=== PATIENT | female | born 1985 | race Caucasian/White ===

== ENCOUNTER → 2017-10-17 | Outpatient (CLI) | payer OTHER | END | disposition home or self-care (01) | LOC: NST 15:28 | DX: Z34.92 Encounter for supervision of normal pregnancy, unspecified, second trimester (principal) ==

== ENCOUNTER 2017-11-11 11:27 | Outpatient (CLI) | payer OTHER | END 2017-11-11 12:12 | disposition home or self-care (01) | LOC: NST 11:27 | DX: Z34.83 Encounter for supervision of other normal pregnancy, third trimester (principal) ==

== ENCOUNTER 2017-12-03 16:30 | Inpatient (IN) | payer OTHER ==
[~2017-12-03] VITALS: Ht 165.1 cm; Wt 92.5 kg
[2018-01-07] MEDS ORDERED: PRENATAL 19 TA1 EAC1 PO (08:25)
[2018-01-07] MEDS ORDERED: SYNTHROID75 MCG PO (08:25)
[2018-01-07] MEDS ORDERED: ZYRTEC10 M3 PO (08:26)
[2018-01-07] MEDS ORDERED: FOLIC ACID0.4 MG PO (08:27)
== END 2018-01-09 17:29 | DRG 775 ==
LOC: OB/GYN 01-05 16:23 → LDR 01-07 06:41 → SURG-SUITE 01-07 18:26
PROC: 10E0XZZ Delivery of Products of Conception, External Approach (ICD-10-PCS; principal; 2018-01-07)
PROC: 0KQM0ZZ Repair Perineum Muscle, Open Approach (ICD-10-PCS; 2018-01-07)
PROC: 0W8NXZZ Division of Female Perineum, External Approach (ICD-10-PCS; 2018-01-07)
PROC: 3E033VJ Introduction of Other Hormone into Peripheral Vein, Percutaneous Approach (ICD-10-PCS; 2018-01-07)
PROC: 4A033R1 Measurement of Arterial Saturation, Peripheral, Percutaneous Approach (ICD-10-PCS; 2018-01-07)
PROC: 4A1HXCZ Monitoring of Products of Conception, Cardiac Rate, External Approach (ICD-10-PCS; 2018-01-07)
DX: O48.0 Post-term pregnancy (principal); O70.0 First degree perineal laceration during delivery; Z3A.40 40 weeks gestation of pregnancy; Z37.0 Single live birth

== ENCOUNTER 2017-12-31 14:12 | Outpatient (CLI) | payer OTHER | END 2017-12-31 14:35 | disposition home or self-care (01) | LOC: NST 14:12 | DX: Z34.83 Encounter for supervision of other normal pregnancy, third trimester (principal) ==

== ENCOUNTER → 2022-01-09 | Outpatient (CLI) | payer OTHER ==
[~2022-01-09] MED LIST: FOLIC ACID0.4 MG PO; PRENATAL 19 TA1 EAC1 PO; SYNTHROID75 MCG PO; ZYRTEC10 M3 PO
== END | disposition home or self-care (01) ==
LOC: NST 11:46
PROVIDERS: ATTEND Obstetrics & Gynecology Maternal & Fetal Medicine
DX: Z34.83 Encounter for supervision of other normal pregnancy, third trimester (principal)

== ENCOUNTER 2022-01-16 09:18 | Outpatient (CLI) | payer OTHER | END 2022-01-16 09:37 | disposition home or self-care (01) | LOC: NST 09:18 | PROVIDERS: ATTEND Obstetrics & Gynecology Maternal & Fetal Medicine | DX: Z34.83 Encounter for supervision of other normal pregnancy, third trimester (principal) ==

== ENCOUNTER 2022-01-22 10:25 | Outpatient (CLI) | payer OTHER | END 2022-01-22 13:45 | disposition home or self-care (01) | LOC: NST 10:25 | PROVIDERS: ATTEND Obstetrics & Gynecology Maternal & Fetal Medicine | DX: Z34.83 Encounter for supervision of other normal pregnancy, third trimester (principal) ==

== ENCOUNTER 2022-02-06 10:18 | Outpatient (CLI) | payer OTHER | END 2022-02-06 11:06 | disposition home or self-care (01) | LOC: NST 10:18 | PROVIDERS: ATTEND Obstetrics & Gynecology Maternal & Fetal Medicine | DX: Z34.83 Encounter for supervision of other normal pregnancy, third trimester (principal) ==

== ENCOUNTER 2022-02-12 11:45 | Inpatient (IN) | payer OTHER ==
[~2022-02-12] VITALS: Ht 165.1 cm; Wt 99.8 kg
[2022-02-22] MEDS ORDERED: PRENATAL TABLE1 EAC1 PO (09:25)
[2022-02-22] MEDS ORDERED: SYNTHROID50 MCG PO (09:25)
== END 2022-02-24 15:10 | disposition home or self-care (01) | DRG 807 ==
LOC: EDSTATUS 11:45 → LDR 02-22 07:52 → OB/GYN 02-22 07:52
PROVIDERS: ADMIT Obstetrics & Gynecology Maternal & Fetal Medicine; ATTEND Obstetrics & Gynecology Maternal & Fetal Medicine
PROC: 10E0XZZ Delivery of Products of Conception, External Approach (ICD-10-PCS; principal; 2022-02-22)
PROC: 0KQM0ZZ Repair Perineum Muscle, Open Approach (ICD-10-PCS; 2022-02-22)
PROC: 4A1HXCZ Monitoring of Products of Conception, Cardiac Rate, External Approach (ICD-10-PCS; 2022-02-22)
DX: O70.1 Second degree perineal laceration during delivery (principal); Z37.0 Single live birth; Z3A.39 39 weeks gestation of pregnancy; Z20.822 Contact with and (suspected) exposure to COVID-19

== ENCOUNTER 2022-02-20 09:21 | Outpatient (CLI) | payer OTHER | END 2022-02-20 09:48 | disposition home or self-care (01) | LOC: NST 09:21 | PROVIDERS: ATTEND Obstetrics & Gynecology Maternal & Fetal Medicine | DX: Z34.83 Encounter for supervision of other normal pregnancy, third trimester (principal) ==